=== PATIENT | male | born 1945 | race Caucasian/White ===

== ENCOUNTER → 2016-05-04 | Outpatient (CLI) | payer OTHER ==
[~2016-05-04] MED LIST: LIDOCAINE 1% MDV 20ML VIAL As Ordered ONE; LIDOCAINE 2% MDV 20 ML VIAL As Ordered ONE; LIDOCAINE 4% CREAM 5GM (LMX4) As Ordered ONE; SODIUM TETRADECYL SULFATE(3%)30MG/ML 2ML VIAL (SOTRADECOL) As Ordered ONE
--- NOTE | 2016-05-04 18:54 | REPKIM ---
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 Patient has failed conservative treatment; c /o persistent symptoms that are refractory more than a 3 month course of conservative therapy; utilization of compressive stockings and leg elevation. Duplex US reflux evaluation of the left leg showed significant reflux involving the greater saphenous vein for a duration of 4.7 seconds, AP dimension of that vessel is 7.7 mm. this also showed significant collateral varicosities also seen in the mid calf level. PROCEDURE: 1. Endovenous laser ablation therapy of the incompetent GSV on the left 2. Sclerotherapy of the incompetent significant calf varicosities on the left INTERVENTIONALIST: Wisam Sotomayor MD EBL: 5 mL MEDICATIONS: Local Lidocaine and Sodium Tetradecyl Sulfate 3% diluted to 1.5% DEVICE USED: 45-CM [id number] TECHNIQUE AND FINDINGS: Informed consent was obtained prior to the procedure. The patient was placed supine on the table. A time out was performed that verified correct procedure, site, side and materials available. Ultrasound examination was performed and focused on the saphenofemoral junction of the left leg. This showed significant reflux involving the greater saphenous vein as previously described. This also showed significant calf varicosities. The left lower extremity was prepped and draped in the usual sterile fashion. After local anesthesia with 1mL of lidocaine 1% at the skin, the incompetent greater saphenous vein just above the knee level was accessed with a 21 gauge needle and a 0.018" wire followed by a 4 [place] sheath of the EVLT kit. The sheath was advanced over the wire to the saphenofemoral junction level and the laser fiber was advanced coaxially and its tip was positioned approximately 4-5 cm distal from the saphenofemoral junction. Tumescent anesthesia was given along this vein by using real-time ultrasonographic guidance and a 22 gauge spinal needle and a mixture of diluted lidocaine (12.5mL @ 2% in 237.5mL of normal saline). Endovenous laser ablation was applied along the greater saphenous vein using 6 Buck[place] in continuous mode for a total duration of 229 seconds. A total of 1373 Joules was delivered. Significant varicosities in the calf region was then accessed with a butterfly needle. Approximately 2 mL of sclerotherapy foam (1mL sodium tetradecyl sulfate diluted at 1.5 %) mixed with air at a ratio of 1:4 injected. Compression was maintained. SteriStrips was applied on the skin, followed by 20-30 mm Hg compression stockings. The patient was then allowed to stand and instructed to walk for 15 minutes. He was then discharged back home in good and stable condition with no immediate complication. This procedure was performed with ultrasound guidance. Dr. Sotomayor was present. IMPRESSION: Successful treatment of symptomatic incompetent GSV in the left lower extremity by endovenous laser ablation. 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 PLAN: Pt was given post-procedure instructions, including contact information for a follow-up duplex ultrasound of the left lower extremity to rule out DVT and post EVLT/sclerotherapy evaluation in next several days. cc: ROSE Rudd
== END | disposition home or self-care (01) ==
LOC: M IRPRO 08:08
DX: I83.812 Varicose veins of left lower extremity with pain (principal); I83.892 Varicose veins of left lower extremity with other complications

== ENCOUNTER → 2016-05-06 | Outpatient (CLI) | payer OTHER ==
--- NOTE | 2016-05-06 11:45 | REP ---
Left lower extremity Duplex Doppler venous ultrasound: Real time compression and duplex Doppler interrogation of the left lower extremity deep venous system is performed. The left common femoral, superficial femoral and popliteal veins are fully compressible with transducer pressure and demonstrate normal spontaneous and phasic flow, without evidence of deep venous thrombosis. Impression: No evidence of deep venous thrombosis of the left lower extremity femoral popliteal venous system. The greater saphenous vein demonstrates thrombosis up to the saphenofemoral junction, as expected. Signed by Robin Goldman MD 05/06/2016 11:38 A
== END ==
LOC: M RAD 10:10
DX: I83.812 Varicose veins of left lower extremity with pain (principal)

== ENCOUNTER → 2017-08-03 | Outpatient (CLI) | payer OTHER ==
[2017-08-03 11:44] LABS: BASO # 0.1 10^3/uL (0.0-0.2); BASO % 0.8 % (0.0-1.0); EOS # 0.3 10^3/uL (0.0-0.50); EOS % 3.8 % (0.0-3.0); HEMATOCRIT 42.9 % (42.0-52.0); HEMOGLOBIN 13.9 g/dl (13.5-17.5); IMMATURE GRANULOCYTE # 0.2 10^3/uL (0-0); IMMATURE GRANULOCYTE % 2.1 % (0-3.0); LYMPH # 2.5 10^3/uL (1.5-4.5); MEAN CORPUSCULAR HEMOGLOBIN 28.7 pg (27.0-33.0); MEAN CORPUSCULAR HGB CONC 32.4 g/dl (32.0-36.5); MEAN CORPUSCULAR VOLUME 88.6 fl (80.0-96.0); MONO # 0.7 10^3/uL (0.0-0.8); MONO % 8.2 % (0.0-5.0); NEUTROPHILS # 4.9 10^3/uL (1.8-7.7); NEUTROPHILS % 56.1 % (36.0-66.0); PLATELET COUNT, AUTOMATED 241 10^3/uL (150-450); RED BLOOD COUNT 4.84 10^6/uL (4.30-6.10); RED CELL DISTRIBUTION WIDTH 13.3 % (11.5-14.5); WHITE BLOOD COUNT 8.7 10^3/uL (4.0-10.0)
[2017-08-03 12:01] LABS: TOTAL 25(OH) VITAMIN D 45.1 NG/ML (30.0-100.0)
[2017-08-03 12:13] LABS: ALBUMIN 3.4 GM/DL (3.2-5.2); ALBUMIN/GLOBULIN RATIO 0.97 (1.00-1.93); ALKALINE PHOSPHATASE 92 U/L (45-117); ALT/SGPT 28 U/L (12-78); ANION GAP 5 MEQ/L (8-16); AST/SGOT 17 U/L (7-37); BILIRUBIN,TOTAL 0.5 MG/DL (0.2-1.0); BLOOD UREA NITROGEN 27 MG/DL (7-18); CALCIUM LEVEL 8.9 MG/DL (8.8-10.2); CARBON DIOXIDE LEVEL 29 MEQ/L (21-32); CHLORIDE LEVEL 107 MEQ/L (98-107); CHOLESTEROL LEVEL 174 MG/DL (<200); CHOLESTEROL RISK RATIO 3.346 (<5); CREATININE FOR GFR 1.32 MG/DL (0.70-1.30); FREE T4 1.14 NG/DL (0.76-1.46); GLOMERULAR FILTRATION RATE 56.9 (>42); GLUCOSE, FASTING 85 MG/DL (70-100); HDL CHOLESTEROL 52 MG/DL (>40); LDL CHOLESTEROL 97.8 MG/DL (<100); NON-HDL-C 122 MG/DL; POTASSIUM SERUM 5.1 MEQ/L (3.5-5.1); SODIUM LEVEL 141 MEQ/L (136-145); TOTAL PROTEIN 6.9 GM/DL (6.4-8.2); TRIGLYCERIDES LEVEL 121 MG/DL (<150)
[2017-08-03 13:11] LABS: ESTIMATED AVERAGE GLUCOSE 120 MG/DL (60-110); HEMOGLOBIN A1c 5.8 %
== END ==
LOC: M LRY 07:49
DX: R73.9 Hyperglycemia, unspecified (principal); Z79.899 Other long term (current) drug therapy; E78.00 Pure hypercholesterolemia, unspecified; E55.9 Vitamin D deficiency, unspecified
CPT/HCPCS: 84443

== ENCOUNTER → 2017-09-20 | Outpatient (CLI) | payer OTHER | LOC: M RAD 09:22 | DX: J32.4 Chronic pansinusitis (principal); J34.2 Deviated nasal septum | CPT/HCPCS: 70486 ==

== ENCOUNTER → 2018-02-27 | Outpatient (CLI) | payer OTHER | LOC: M EKG 10:31 | DX: Z01.818 Encounter for other preprocedural examination (principal) | CPT/HCPCS: 93005 ==

== ENCOUNTER 2018-03-06 10:38 | Day surgery (SDC) | payer OTHER ==
[2018-03-06] MEDS ORDERED: LR 1,000 ML IV ×3 (12:00→15:00)
[2018-03-06] MEDS ORDERED: LIDOCAINE 2% INJ 100 MG/5 ML SDV (FOR ANES.) As Ordered (12:22)
[2018-03-06] MEDS ORDERED: PROPOFOL 200 MG/20 ML VIAL As Ordered ×2 (12:22→12:41)
[2018-03-06] MEDS ORDERED: fentaNYL 100 MCG/2 ML INJECTION (J3010) As Ordered ×4 (12:22→13:50)
[2018-03-06] MEDS ORDERED: ROCURONIUM BROMIDE 50 MG/5 ML VIAL As Ordered (12:22)
[2018-03-06] MEDS ORDERED: dexameTHASONE 4 MG/ML 1ML VIAL (J1100) As Ordered (12:22)
[2018-03-06] MEDS ORDERED: ESMOLOL INJ 100MG/10ML VIAL As Ordered (12:46)
[2018-03-06] MEDS ORDERED: ONDANSETRON 4MG/2ML VIAL (J2405) As Ordered ×2 (12:47→14:41)
[2018-03-06] MEDS ORDERED: SUGAMMADEX SODIUM 500 MG/5 ML VIAL (BRIDION) As Ordered ×2 (12:49→14:42)
[2018-03-06] MEDS ORDERED: PHENYLephrine HCL 500 MCG/5 ML (100MCG/ML) SYRINGE (J2370) As Ordered ×2 (13:48→14:06)
[2018-03-06] MEDS: METHYLENE BLUE 0.5% (5MG/ML) 10 ML AMP (PROVAYBLUE)(Q9968 PER 1MG) As Ordered (13:54)
[2018-03-06] MEDS: LIDOCAINE W/EPINEPHRINE 1% 20ML VIAL As Ordered (13:54)
[2018-03-06] MEDS: EPINEPHrine 1MG/ML INJ 30ML MD-VIAL As Ordered (13:54)
[2018-03-06] MEDS ORDERED: MEPERIDINE INJ 25 MG/ML VIAL (J2175) IV (15:00)
[2018-03-06] MEDS ORDERED: PERCOCET 5MG/325MG TAB PO (15:00)
[2018-03-06] MEDS ORDERED: fentaNYL 100 MCG/2 ML INJECTION (J3010) IV (15:00)
[2018-03-06] MEDS ORDERED: METOCLOPRAMIDE INJ 10MG/2ML VIAL (J2765) IV (15:00)
[2018-03-06] MEDS ORDERED: ACETAMINOPH W/CODEINE #3 TAB UD PO (15:00)
[2018-03-06] MEDS ORDERED: ONDANSETRON 4MG/2ML VIAL (J2405) IV (15:00)
== END 2018-03-06 17:20 | disposition home or self-care (01) ==
LOC: M SDC 17:20
DX: J34.2 Deviated nasal septum (principal); J32.9 Chronic sinusitis, unspecified; I10 Essential (primary) hypertension; E78.00 Pure hypercholesterolemia, unspecified; K21.9 Gastro-esophageal reflux disease without esophagitis; M12.9 Arthropathy, unspecified; M54.2 Cervicalgia; R51 Headache; R04.0 Epistaxis; R06.83 Snoring; Z79.899 Other long term (current) drug therapy; Z79.82 Long term (current) use of aspirin
CPT/HCPCS: 30130

== ENCOUNTER 2018-06-02 20:03 | Emergency (ER) | payer MEDICARE, OTHER ==
[~2018-06-02] VITALS: Ht 170.2 cm; Wt 81.2 kg
[~2018-06-02 20:03] MED LIST changes: +ASPI1TAB PO; +CALC1TAB40 PO; +COQ-100C2 PO; +FISH7.5C PO; +GARL500T PO; -LIDOCAINE 1% MDV 20ML VIAL As Ordered ONE; -LIDOCAINE 2% MDV 20 ML VIAL As Ordered ONE; -LIDOCAINE 4% CREAM 5GM (LMX4) As Ordered ONE; +LISI-538 PO; +SIMV20TA2 PO; -SODIUM TETRADECYL SULFATE(3%)30MG/ML 2ML VIAL (SOTRADECOL) As Ordered ONE; +TURM450C PO; +VITA100067 PO; +VITA400C7 PO; +VITA500T PO; +VITA500T3 PO
[2018-06-02] MEDS ORDERED: ACETAMINOPH W/CODEINE #3 TAB UD PO ONE (21:00)
[2018-06-02] MEDS ORDERED: CODE30TA3 PO (21:28)
[2018-06-02 21:38] VITALS: BP 134/63
--- NOTE | 2018-06-03 10:31 | REP ---
Left ribs for views: There is no rib fracture or other rib abnormality. PA chest: Comparison is 2001. There is no pneumothorax, hemothorax or pulmonary contusion. Lung partida are clear. Cardiac size is normal. The ed, mediastinum, skeletal structures are unremarkable. Impression: Negative PA chest. Electronically Signed by Robin Gipson MD 06/03/2018 08:39 A
--- NOTE | 2018-06-03 17:49 | ECGEPIP ---
Stationary ECG Study [facility] - ED Test Date: 2018-06-02 Pat Name: ADILSON COPE Department: Room: - Gender: M Data Entry Machine Operator: : [id number] Requested By: LUCIE RANGEL Order Number: [id number] Reading MD: Rosalie Dominique Measurements Intervals [place] Rate: 68 P: 14 MT: 143 QRS: 43 QRSD: 89 T: 59 QT: 387 QTc: 414 Interpretive Statements SINUS RHYTHM PROMINENT R WAVES V1-V4 INCREASED RATE 02/27/18 Electronically Signed On 06-03-2018 17:48:58 EST by Rosalie Dominique
== END 2018-06-02 21:59 | disposition home or self-care (01) ==
LOC: M ED 20:03
DX: S20.212A Contusion of left front wall of thorax, initial encounter (principal); W01.10XA Fall on same level from slipping, tripping and stumbling with subsequent striking against unspecified object, initial encounter; Y92.9 Unspecified place or not applicable; Y93.9 Activity, unspecified; Y99.9 Unspecified external cause status; I10 Essential (primary) hypertension; Z79.82 Long term (current) use of aspirin; Z79.899 Other long term (current) drug therapy

== ENCOUNTER → 2019-09-30 | Outpatient (CLI) | payer MEDICARE ==
[~2019-09-30] MED LIST changes: +ACET300T47 PO; -ASPI1TAB PO; +ASPI81TA26 PO; +CONRAY-43 43% 50ML VIAL (Q9960) As Ordered ONE; +CYAN500T8 PO; +PROHANCE 279.3MG/ML 5ML VIAL As Ordered ONE; -SIMV20TA2 PO; +SIMV20TA22 PO; +VITA-243 PO; -VITA500T PO; -VITA500T3 PO
--- NOTE | 2019-09-30 11:27 | REP ---
Reason For Exam/Comment: Pain in right shoulder, rule out labral tear Procedure: Right shoulder MRI arthrogram The procedure was performed by HERACLIO Iverson, under the direct supervision of Dr. Goldman. The benefits and risks including but not limited to pain, infection, bleeding and anaphylaxis were explained to the patient and informed consent was obtained both verbally and written. Directly prior to the start of the procedure, a formal timeout was completed in the procedure room. Technique: The right glenohumeral joint space was localized using fluoroscopic guidance. The skin was prepped and draped in the usual sterile fashion. 5 mL of 1% lidocaine 10 mg/ml was used as a local anesthetic. Using fluoroscopic guidance a 22-gauge spinal needle was inserted and advanced to the right glenohumeral joint space . 1 mL of Conray 43 was injected to verify needle placement. 12 mL of a solution containing 20 ml of sterile saline and a 0.15 ml of ProHance was injected into the joint. The needle was removed and the patient was taken MRI for post procedural imaging. The patient tolerated the procedure well and there were no immediate complications. 0.1 minutes of fluoroscopy time was utilized for this procedure. Some fluoroscopic images are performed with last image hold technology. These images require no additional radiation. Reviewed by HERACLIO Grey 09/30/2019 09:43 A Electronically Signed by Robin Goldman MD 09/30/2019 10:27 A
--- NOTE | 2019-09-30 12:46 | REP ---
MR ARTHROGRAM RIGHT SHOULDER: TECHNIQUE: Axial T2 fat sat, coronal oblique T1, T2 fat sat, post arthrogram axial T1 fat sat, proton density, coronal oblique T1 fat sat, T2 sat, sagittal oblique T2 fat sat, ABER T1 fat sat. There is a complete full-thickness tear of the supraspinatus tendon with traction of the musculotendinous junction approximately 3-4 cm. There is tendinopathy of the subscapularis tendon with a possible partial tear. There are mild to moderate hypertrophic degenerative changes at the acromioclavicular joint. There is a type 1 acromion. Biceps tendon is within the bicipital groove with no tenosynovitis. There is no [place]-Sachs deformity. The deltoid muscle demonstrates no abnormal signal. There is mild fraying of the biceps labral complex and superior labrum with no discrete labral tear. There is no bone marrow edema or occult fracture. Small amount of joint fluid extends into the subacromial subdeltoid bursae. IMPRESSION: Complete full thickness tear supraspinatus tendon with approximately 3-4 cm of retraction of the musculotendinous junction. There is tendinosis and possibly a partial tear of the subscapularis tendon. There are mild to moderate hypertrophic changes of the acromioclavicular joint. Mild fraying of the biceps labral complex and superior labrum without a discrete labral tear. Electronically Signed by Robin Goldman MD 09/30/2019 07:30 P
== END ==
LOC: M RADPRO 06:33
PROVIDERS: ATTEND Physician Assistant Medical
DX: M75.120 Complete rotator cuff tear or rupture of unspecified shoulder, not specified as traumatic (principal)
CPT/HCPCS: 23350; 73223; 77002; A9576; Q9960

== ENCOUNTER → 2021-10-14 | Outpatient (REF) | payer MEDICARE ==
[~2021-10-14] MED LIST changes: -CONRAY-43 43% 50ML VIAL (Q9960) As Ordered ONE; +CYAN500T14 PO; -CYAN500T8 PO; -LISI-538 PO; +LISI20TA33 PO; -PROHANCE 279.3MG/ML 5ML VIAL As Ordered ONE
== END ==
LOC: M SFHCDERM 16:09
PROVIDERS: ATTEND Dermatology
DX: D23.4 Other benign neoplasm of skin of scalp and neck (principal)

== ENCOUNTER → 2022-01-19 | Outpatient (CLI) | payer MEDICARE ==
[~2022-01-19] MED LIST changes: +FISH10005 PO; -FISH7.5C PO
== END ==
LOC: M LAB 13:46
PROVIDERS: ATTEND Physician Assistant
DX: M25.551 Pain in right hip (principal)

== ENCOUNTER → 2022-01-21 | Outpatient (CLI) | payer MEDICARE | LOC: M WHC 07:34 | PROVIDERS: ATTEND Physician Assistant | DX: M25.551 Pain in right hip (principal); R10.9 Unspecified abdominal pain ==

== ENCOUNTER 2022-07-23 09:53 | Emergency (ER) | payer MEDICARE ==
[~2022-07-23] VITALS: Ht 170.2 cm; Wt 77.9 kg
[2022-07-23 09:54] VITALS: BP 158/71
[2022-07-23] MEDS ORDERED: SIMV40TA20 (10:13)
== END 2022-07-23 11:20 | disposition left against medical advice (07) ==
LOC: M ED 09:53
DX: Z53.21 Procedure and treatment not carried out due to patient leaving prior to being seen by health care provider (principal)

== ENCOUNTER 2023-05-30 17:58 | Emergency (ER) | payer MEDICARE ==
[~2023-05-30] VITALS: Ht 170.2 cm; Wt 75.5 kg
[~2023-05-30 17:58] MED LIST changes: +SIMV40TA20
[2023-05-30] MEDS: ACETAMINOPHEN TAB 650MG DOSE (2X325MG) PO ONE (19:28)
[2023-05-30 20:30] LABS: BASO % 0.3 % (0.0-1.0); EOS # 0.1 10^3/uL (0.0-0.5); EOS % 0.8 % (0.0-3.0); HEMATOCRIT 37.2 % (42.0-52.0); HEMOGLOBIN 11.9 g/dl (13.5-17.5); LYMPH # 1.1 10^3/uL (1.5-5.0); LYMPH % 9.5 % (24.0-44.0); MEAN CORPUSCULAR HEMOGLOBIN 28.3 pg (27.0-33.0); MEAN CORPUSCULAR VOLUME 88.6 fl (80.0-96.0); MONO # 1.3 10^3/uL (0.0-0.8); MONO % 11.7 % (2.0-8.0); NEUTROPHILS # 8.5 10^3/uL (1.5-8.5); NEUTROPHILS % 77.2 % (36.0-66.0); PLATELET COUNT, AUTOMATED 194 10^3/uL (150-450)
[2023-05-30 20:41] LABS: INR 1.11
[2023-05-30 20:42] LABS: PARTIAL THROMBOPLASTIN TIME 26.1 SECONDS (24.8-34.2)
[2023-05-30 20:58] LABS: ALBUMIN 2.5 G/DL (3.2-5.2); ALKALINE PHOSPHATASE 90 U/L (46-116); ALT/SGPT 26 U/L (7.0-40); AST/SGOT 30 U/L (<34); BILIRUBIN,DIRECT 0.2 MG/DL (<0.4); BILIRUBIN,TOTAL 0.4 MG/DL (0.3-1.2); BLOOD UREA NITROGEN 31 MG/DL (9-23); CALCIUM LEVEL 8.1 MG/DL (8.3-10.6); CARBON DIOXIDE LEVEL 26 MMOL/L (20-31); CHLORIDE LEVEL 108 MMOL/L (98-107); CK-MB VALUE MASS < 1.0 NG/ML (<3.6); CPK CREATINE PHOSPHOKINASE 23 U/L (46-171); CREATININE FOR GFR 1.43 MG/DL (0.70-1.30); GLUCOSE, FASTING 122 MG/DL (74-106); MB/CK RELATIVE INDEX 4.34 (< OR =4); POTASSIUM SERUM 4.2 MMOL/L (3.5-5.1); SODIUM LEVEL 139 MMOL/L (136-145); TOTAL PROTEIN 5.8 G/DL (5.7-8.2)
[2023-05-30 21:02] LABS: FREE T4 1.06 NG/DL (0.89-1.76); THYROID STIMULATING HORMONE 0.474 uIU/ML (0.55-4.78)
[2023-05-30 22:47] VITALS: BP 148/74; TEMP 98.6; O2SAT 96
== END 2023-05-30 23:10 | disposition home or self-care (01) ==
LOC: EDBD 17:58 → M ED 17:58
DX: S92.351A Displaced fracture of fifth metatarsal bone, right foot, initial encounter for closed fracture (principal); S92.341A Displaced fracture of fourth metatarsal bone, right foot, initial encounter for closed fracture; M71.21 Synovial cyst of popliteal space [Baker], right knee; M71.22 Synovial cyst of popliteal space [Baker], left knee; B34.8 Other viral infections of unspecified site; M19.071 Primary osteoarthritis, right ankle and foot; M19.072 Primary osteoarthritis, left ankle and foot; R60.9 Edema, unspecified; I10 Essential (primary) hypertension; E78.5 Hyperlipidemia, unspecified; Z87.891 Personal history of nicotine dependence; Z79.82 Long term (current) use of aspirin; Z79.811 Long term (current) use of aromatase inhibitors; Z79.899 Other long term (current) drug therapy

== ENCOUNTER → 2023-06-08 | Outpatient (CLI) | payer MEDICARE ==
[2023-06-08 17:07] LABS: APPEARANCE, URINE CLEAR (CLEAR); BACTERIA, URINE AUTO NEGATIVE (NEGATIVE); BILIRUBIN, URINE AUTO NEGATIVE (NEGATIVE); BLOOD, URINE BLOOD 1+ (NEGATIVE); COLOR, URINE YELLOW (YELLOW); GLUCOSE, URINE (UA) AUTO NEGATIVE (NEGATIVE); KETONE, URINE AUTO NEGATIVE (NEGATIVE); LEUKOCYTE ESTERASE, URINE AUTO NEGATIVE (NEGATIVE); MUCUS, URINE SMALL (NEGATIVE); NITRITE, URINE AUTO NEGATIVE (NEGATIVE); PROTEIN, URINE AUTO NEGATIVE (NEGATIVE); RBC, URINE AUTO 2 /HPF (0-3); SPECIFIC GRAVITY URINE AUTO 1.016 (1.002-1.035); SQUAMOUS EPITHELIAL CELL UR AU 0 /HPF (0-6); UROBILINOGEN, URINE AUTO 0.2 mg/dL (0.0-2.0); WBC, URINE AUTO 0 /HPF (0-3)
[2023-06-08 17:23] LABS: BASO % 0.4 % (0.0-1.0); EOS # 0.1 10^3/uL (0.0-0.5); EOS % 0.5 % (0.0-3.0); HEMATOCRIT 40.2 % (42.0-52.0); HEMOGLOBIN 12.3 g/dl (13.5-17.5); LYMPH # 2.3 10^3/uL (1.5-5.0); LYMPH % 24.4 % (24.0-44.0); MEAN CORPUSCULAR HEMOGLOBIN 27.9 pg (27.0-33.0); MEAN CORPUSCULAR HGB CONC 30.6 g/dl (32.0-36.5); MEAN CORPUSCULAR VOLUME 91.2 fl (80.0-96.0); MONO # 0.6 10^3/uL (0.0-0.8); MONO % 6.9 % (2.0-8.0); NEUTROPHILS # 6.2 10^3/uL (1.5-8.5); NEUTROPHILS % 66.5 % (36.0-66.0); PLATELET COUNT, AUTOMATED 376 10^3/uL (150-450); RED BLOOD COUNT 4.41 10^6/uL (4.30-6.10); WHITE BLOOD COUNT 9.3 10^3/uL (4.0-10.0)
[2023-06-08 17:49] LABS: ALBUMIN 3.4 G/DL (3.2-5.2); BILIRUBIN,TOTAL 0.3 MG/DL (0.3-1.2); CALCIUM LEVEL 9.4 MG/DL (8.3-10.6); CHOLESTEROL RISK RATIO 4.51 (<5); CREATININE FOR GFR 1.39 MG/DL (0.70-1.30); GLOMERULAR FILTRATION RATE 52.7 (>42); HDL CHOLESTEROL 48.1 MG/DL (>40); LDL CHOLESTEROL 149.7 MG/DL (<100); MAGNESIUM LEVEL 1.9 MG/DL (1.8-2.4); NON-HDL-C 168.9 MG/DL; PERCENT SATURATION 25.3 % (19.7-50.0); POTASSIUM SERUM 4.6 MMOL/L (3.5-5.1); TOTAL PROTEIN 7.1 G/DL (5.7-8.2)
[2023-06-08 17:50] LABS: FREE T4 1.26 NG/DL (0.89-1.76)
[2023-06-08 17:51] LABS: FERRITIN 203.4 NG/ML (10.5-307.3); THYROID STIMULATING HORMONE 0.511 uIU/ML (0.55-4.78)
== END ==
LOC: M WUC 12:56
PROVIDERS: ATTEND Physician Assistant
DX: M85.88 Other specified disorders of bone density and structure, other site (principal); M51.36 Other intervertebral disc degeneration, lumbar region; I10 Essential (primary) hypertension; R53.1 Weakness; G89.29 Other chronic pain; Z86.39 Personal history of other endocrine, nutritional and metabolic disease

== ENCOUNTER → 2023-07-06 | Outpatient (CLI) | payer MEDICARE ==
[2023-07-06 13:39] LABS: APPEARANCE, URINE CLEAR (CLEAR); BACTERIA, URINE AUTO NEGATIVE (NEGATIVE); BILIRUBIN, URINE AUTO NEGATIVE (NEGATIVE); BLOOD, URINE BLOOD NEGATIVE (NEGATIVE); COLOR, URINE YELLOW (YELLOW); GLUCOSE, URINE (UA) AUTO NEGATIVE (NEGATIVE); KETONE, URINE AUTO NEGATIVE (NEGATIVE); LEUKOCYTE ESTERASE, URINE AUTO NEGATIVE (NEGATIVE); NITRITE, URINE AUTO NEGATIVE (NEGATIVE); PROTEIN, URINE AUTO NEGATIVE (NEGATIVE); RBC, URINE AUTO 0 /HPF (0-3); SPECIFIC GRAVITY URINE AUTO 1.014 (1.002-1.035); SQUAMOUS EPITHELIAL CELL UR AU 0 /HPF (0-6); UROBILINOGEN, URINE AUTO 0.2 mg/dL (0.0-2.0); WBC, URINE AUTO 0 /HPF (0-3)
[2023-07-06 14:16] LABS: TOTAL 25(OH) VITAMIN D 45.2 NG/ML (20.0-100.0)
[2023-07-06 14:18] LABS: FREE T4 1.13 NG/DL (0.89-1.76)
[2023-07-06 14:24] LABS: ALBUMIN 3.6 G/DL (3.2-5.2); BILIRUBIN,TOTAL 0.4 MG/DL (0.3-1.2); CALCIUM LEVEL 9.6 MG/DL (8.3-10.6); CREATININE FOR GFR 1.7 MG/DL (0.70-1.30); GLOMERULAR FILTRATION RATE 41.8 (>42); POTASSIUM SERUM 5.7 MMOL/L (3.5-5.1); TOTAL PROTEIN 6.7 G/DL (5.7-8.2)
[2023-07-06 14:44] LABS: FREE T3 2.8 PG/ML (2.3-4.2); TOTAL T3 95.7 NG/DL (60.0-181.0)
== END ==
LOC: M RAD 12:43
PROVIDERS: ATTEND Physician Assistant
DX: R79.89 Other specified abnormal findings of blood chemistry (principal); M85.80 Other specified disorders of bone density and structure, unspecified site; R31.9 Hematuria, unspecified; R94.6 Abnormal results of thyroid function studies

== ENCOUNTER 2023-07-12 14:25 | Emergency (ER) | payer MEDICARE ==
[~2023-07-12] VITALS: Ht 170.2 cm; Wt 72.3 kg
[2023-07-12 18:38] LABS: BASO % 0.4 % (0.0-1.0); EOS # 0.1 10^3/uL (0.0-0.5); EOS % 1.6 % (0.0-3.0); HEMATOCRIT 46.3 % (42.0-52.0); HEMOGLOBIN 14.7 g/dl (13.5-17.5); LYMPH # 2.1 10^3/uL (1.5-5.0); LYMPH % 30.4 % (24.0-44.0); MEAN CORPUSCULAR HEMOGLOBIN 28.7 pg (27.0-33.0); MEAN CORPUSCULAR HGB CONC 31.7 g/dl (32.0-36.5); MEAN CORPUSCULAR VOLUME 90.3 fl (80.0-96.0); MONO # 0.5 10^3/uL (0.0-0.8); MONO % 7.5 % (2.0-8.0); NEUTROPHILS # 4.1 10^3/uL (1.5-8.5); NEUTROPHILS % 59.5 % (36.0-66.0); PLATELET COUNT, AUTOMATED 282 10^3/uL (150-450); RED BLOOD COUNT 5.13 10^6/uL (4.30-6.10); WHITE BLOOD COUNT 6.9 10^3/uL (4.0-10.0)
[2023-07-12 19:08] LABS: CALCIUM LEVEL 10.1 MG/DL (8.3-10.6); CREATININE FOR GFR 1.63 MG/DL (0.70-1.30); GLOMERULAR FILTRATION RATE 43.9 (>42); MAGNESIUM LEVEL 2.1 MG/DL (1.8-2.4); POTASSIUM SERUM 4.5 MMOL/L (3.5-5.1)
[2023-07-12 19:11] LABS: THYROID STIMULATING HORMONE 0.156 uIU/ML (0.55-4.78)
[2023-07-12] MEDS ORDERED: ONDA4TAB6 PO (22:53)
[2023-07-12 23:00] VITALS: BP 127/74; TEMP 98; O2SAT 99
[2023-07-12] MEDS: ONDANSETRON 4MG ORAL DISINTEGRATING TAB PO ONE (23:09)
== END 2023-07-12 23:26 | disposition home or self-care (01) ==
LOC: M ED 14:25
DX: R42 Dizziness and giddiness (principal); F07.81 Postconcussional syndrome; M51.37 Other intervertebral disc degeneration, lumbosacral region; M85.88 Other specified disorders of bone density and structure, other site; M47.9 Spondylosis, unspecified; I49.3 Ventricular premature depolarization; I10 Essential (primary) hypertension; G40.909 Epilepsy, unspecified, not intractable, without status epilepticus; Z79.811 Long term (current) use of aromatase inhibitors; Z79.83 Long term (current) use of bisphosphonates; Z79.82 Long term (current) use of aspirin; Z79.899 Other long term (current) drug therapy; Z79.02 Long term (current) use of antithrombotics/antiplatelets

== ENCOUNTER → 2023-08-22 | Outpatient (CLI) | payer MEDICARE ==
[~2023-08-22] MED LIST changes: +ONDA4TAB6 PO
[2023-08-22 11:51] LABS: APPEARANCE, URINE CLEAR (CLEAR); BACTERIA, URINE AUTO NEGATIVE (NEGATIVE); BILIRUBIN, URINE AUTO NEGATIVE (NEGATIVE); BLOOD, URINE BLOOD NEGATIVE (NEGATIVE); COLOR, URINE YELLOW (YELLOW); GLUCOSE, URINE (UA) AUTO NEGATIVE (NEGATIVE); KETONE, URINE AUTO NEGATIVE (NEGATIVE); LEUKOCYTE ESTERASE, URINE AUTO NEGATIVE (NEGATIVE); NITRITE, URINE AUTO NEGATIVE (NEGATIVE); PROTEIN, URINE AUTO NEGATIVE (NEGATIVE); RBC, URINE AUTO 0 /HPF (0-3); SPECIFIC GRAVITY URINE AUTO 1.012 (1.002-1.035); SQUAMOUS EPITHELIAL CELL UR AU 0 /HPF (0-6); UROBILINOGEN, URINE AUTO 0.2 mg/dL (0.0-2.0); WBC, URINE AUTO 0 /HPF (0-3)
[2023-08-22 12:39] LABS: CREATININE, URINE 83.6 MG/DL; MAU/CREAT RATIO 8.3 MCG/MG (0.0-30.0)
[2023-08-22 12:43] LABS: ALBUMIN 3.6 G/DL (3.2-5.2); ALKALINE PHOSPHATASE 100 U/L (46-116); ALT/SGPT 18 U/L (7.0-40); AST/SGOT 21 U/L (<34); BILIRUBIN,TOTAL 0.6 MG/DL (0.3-1.2); BLOOD UREA NITROGEN 23 MG/DL (9-23); CALCIUM LEVEL 9.2 MG/DL (8.3-10.6); CARBON DIOXIDE LEVEL 30 MMOL/L (20-31); CHLORIDE LEVEL 103 MMOL/L (98-107); CREATININE FOR GFR 1.52 MG/DL (0.70-1.30); GLOMERULAR FILTRATION RATE 47.6 (>42); GLUCOSE, FASTING 98 MG/DL (74-106); POTASSIUM SERUM 4.5 MMOL/L (3.5-5.1); SODIUM LEVEL 138 MMOL/L (136-145); TOTAL PROTEIN 6.5 G/DL (5.7-8.2)
[2023-08-22 12:44] LABS: FREE T4 1.18 NG/DL (0.89-1.76); THYROGLOBULIN ANTIBODY < 15.0 U/ML (<60.0); THYROID STIMULATING HORMONE 0.417 uIU/ML (0.55-4.78)
[2023-08-22 12:45] LABS: FREE T3 3.1 PG/ML (2.3-4.2)
== END ==
LOC: M WUC 09:37
PROVIDERS: ATTEND Family Medicine
DX: E78.5 Hyperlipidemia, unspecified (principal); N18.30 Chronic kidney disease, stage 3 unspecified; R79.89 Other specified abnormal findings of blood chemistry

== ENCOUNTER 2023-09-22 13:44 | Inpatient (IN) | payer MEDICARE ==
[~2023-09-22] VITALS: Ht 170.2 cm; Wt 78.0 kg
[~2023-09-22 13:44] MED LIST changes: +ONDA-282 PO; -ONDA4TAB6 PO
[2023-09-22] MEDS ORDERED: ROSU5TAB40 PO (14:09)
[2023-09-22] MEDS ORDERED: LISI10TA22 PO (14:09)
[2023-09-22] MEDS ORDERED: CYCL5TAB PO (14:09)
[2023-09-22] MEDS ORDERED: IBUP80TA PO (14:09)
[2023-09-22] MEDS ORDERED: MECL-86 PO (14:09)
[2023-09-22] MEDS: NS 1,000 ML IV ONE ×2 (15:20→22:02)
[2023-09-22 16:10] LABS: BASO % 0.3 % (0.0-1.0); EOS # 0.1 10^3/uL (0.0-0.5); EOS % 0.8 % (0.0-3.0); HEMATOCRIT 35.4 % (42.0-52.0); HEMOGLOBIN 11.5 g/dl (13.5-17.5); LYMPH # 2.2 10^3/uL (1.5-5.0); LYMPH % 18.7 % (24.0-44.0); MEAN CORPUSCULAR HEMOGLOBIN 28.7 pg (27.0-33.0); MEAN CORPUSCULAR HGB CONC 32.5 g/dl (32.0-36.5); MEAN CORPUSCULAR VOLUME 88.3 fl (80.0-96.0); MONO # 0.9 10^3/uL (0.0-0.8); MONO % 7.2 % (2.0-8.0); NEUTROPHILS # 8.6 10^3/uL (1.5-8.5); NEUTROPHILS % 72.2 % (36.0-66.0); PLATELET COUNT, AUTOMATED 247 10^3/uL (150-450); RED BLOOD COUNT 4.01 10^6/uL (4.30-6.10); WHITE BLOOD COUNT 11.9 10^3/uL (4.0-10.0)
[2023-09-22 16:17] LABS: INR 1.04; PARTIAL THROMBOPLASTIN TIME 26.8 SECONDS (24.8-34.2); PROTHROMBIN TIME 13.2 SECONDS (12.5-14.5)
[2023-09-22 16:24] LABS: LIPASE 32 U/L (12-53)
[2023-09-22 16:26] LABS: ETHYL ALCOHOL (ETHANOL) < 0.003 % (0.000-0.010)
[2023-09-22 16:27] LABS: ALBUMIN 3.7 G/DL (3.2-5.2); ALKALINE PHOSPHATASE 87 U/L (46-116); ALT/SGPT 25 U/L (7.0-40); AMYLASE 79 U/L (30-118); AST/SGOT 29 U/L (<34); BILIRUBIN,DIRECT 0.2 MG/DL (<0.4); BILIRUBIN,TOTAL 0.6 MG/DL (0.3-1.2); BLOOD UREA NITROGEN 27 MG/DL (9-23); CALCIUM LEVEL 9.1 MG/DL (8.3-10.6); CARBON DIOXIDE LEVEL 25 MMOL/L (20-31); CHLORIDE LEVEL 103 MMOL/L (98-107); CK-MB VALUE MASS < 1.0 NG/ML (<3.6); CREATININE FOR GFR 2.16 MG/DL (0.70-1.30); GLOMERULAR FILTRATION RATE 31.7 (>42); GLUCOSE, FASTING 75 MG/DL (74-106); POTASSIUM SERUM 4.9 MMOL/L (3.5-5.1); SODIUM LEVEL 136 MMOL/L (136-145); TOTAL PROTEIN 6.9 G/DL (5.7-8.2)
[2023-09-22 16:29] LABS: CPK CREATINE PHOSPHOKINASE 114 U/L (46-171); MB/CK RELATIVE INDEX 0.87 (< OR =4)
[2023-09-22 17:34] LABS: VENOUS BASE EXCESS -0.6 (-2.0-2.0); VENOUS HCO3 24.7 MMOL/L (23.0-27.0); VENOUS O2 SATURATION 51.4 % (60.0-80.0); VENOUS PARTIAL PRESSURE CO2 43.3 mmHg (38.0-50.0); VENOUS PARTIAL PRESSURE O2 28.2 mmHg (30.0-50.0); VENOUS PH 7.374 UNITS (7.330-7.430)
[2023-09-22] MEDS: MORPHINE 2 MG/ML 1ML VIAL IV ONE (17:41)
[2023-09-22] MEDS: BOOSTRIX VACCINE (TETANUS/DIPHTH/ACEL. PERTUSSIS) 0.5ML SYR IM.IMMUN ONE (17:42)
[2023-09-22] MEDS ORDERED: TURM500C3 PO (18:25)
[2023-09-22] MEDS ORDERED: D 101000 PO (18:25)
[2023-09-22] MEDS ORDERED: ASCO500T PO (18:25)
[2023-09-22] MEDS ORDERED: VITA400C83 PO (18:25)
[2023-09-22] MEDS ORDERED: ONDA-83 PO (18:25)
[2023-09-22] MEDS ORDERED: LIDO1PAD TOP (18:25)
[2023-09-22] MEDS ORDERED: HOME MED LIST COMPLETE! XX SCH (18:30)
[2023-09-22 18:45] LABS: CK-MB VALUE MASS 1.1 NG/ML (<3.6)
[2023-09-22 18:51] LABS: MB/CK RELATIVE INDEX 0.56 (< OR =4)
[2023-09-22] MEDS: NS 1,000 ML IV SCH (19:44)
[2023-09-22] MEDS ORDERED: ONDANSETRON 4MG 2ML VIAL IV PRN (20:00)
[2023-09-22] MEDS ORDERED: MOM 30ML SUSPENSION UDC PO PRN (20:00)
[2023-09-22] MEDS ORDERED: PERCOCET 5MG/325MG TAB PO PRN ×2 (20:00)
[2023-09-22] MEDS ORDERED: SENOKOT S TAB PO PRN (20:00)
[2023-09-22] MEDS ORDERED: MORPHINE 4 MG/ML 1ML VIAL IV PRN (20:00)
[2023-09-22] MEDS ORDERED: NALOXONE INJ 0.4MG/1ML VIAL IV PRN (20:00)
[2023-09-22] MEDS ORDERED: MIRALAX *UNIT DOSE* 17GM PACKET PO PRN (20:00)
[2023-09-22] MEDS ORDERED: MECLIZINE 25 MG TABLET PO PRN (20:05)
[2023-09-22] MEDS ORDERED: CYCLOBENZAPRINE 5MG TABLET PO PRN (20:05)
[2023-09-22] MEDS ORDERED: PILL CUTTER 1 EACH XX PRN (20:15)
[2023-09-22 20:27] LABS: TOTAL PROTEIN,RANDOM URINE 20.8 MG/DL (0.0-14.0)
[2023-09-22 20:29] LABS: AMPHETAMINES LEVEL URINE NEGATIVE (NEGATIVE); BARBITURATES URINE NEGATIVE (NEGATIVE); BENZODIAZEPINES URINE NEGATIVE (NEGATIVE); COCAINE METABOLITE URINE NEGATIVE (NEGATIVE); METHADONE URINE NEGATIVE (NEGATIVE)
[2023-09-22 20:30] LABS: CANNABINOIDS URINE NEGATIVE (NEGATIVE); OPIATES URINE POSITIVE (NEGATIVE); PHENCYCLIDINE URINE NEGATIVE (NEGATIVE)
[2023-09-22] MEDS: PERCOCET 5MG/325MG TAB PO ONE (22:04)
[2023-09-22 22:26] VITALS: BP 114/75; TEMP 98.2; O2SAT 99
[2023-09-22 22:42] LABS: CALCIUM LEVEL 8.6 MG/DL (8.3-10.6); CREATININE FOR GFR 2.05 MG/DL (0.70-1.30); GLOMERULAR FILTRATION RATE 33.7 (>42); POTASSIUM SERUM 4.9 MMOL/L (3.5-5.1)
[2023-09-22] MEDS: LIDOCAINE 5% (LIDODERM) PATCH TOP SCH (22:47)
[2023-09-23] VITALS (9 sets, daily range): BP systolic 108–130; BP diastolic 60–72; TEMP 97.3–97.9; O2SAT 85–98
[2023-09-23 06:26] LABS: HEMATOCRIT 31.1 % (42.0-52.0); MEAN CORPUSCULAR HEMOGLOBIN 29.1 pg (27.0-33.0); MEAN CORPUSCULAR HGB CONC 32.2 g/dl (32.0-36.5); MEAN CORPUSCULAR VOLUME 90.4 fl (80.0-96.0); PLATELET COUNT, AUTOMATED 167 10^3/uL (150-450); RED BLOOD COUNT 3.44 10^6/uL (4.30-6.10); WHITE BLOOD COUNT 7.5 10^3/uL (4.0-10.0)
[2023-09-23 06:52] LABS: CALCIUM LEVEL 8.4 MG/DL (8.3-10.6); CREATININE FOR GFR 1.75 MG/DL (0.70-1.30); GLOMERULAR FILTRATION RATE 40.4 (>42); POTASSIUM SERUM 4.5 MMOL/L (3.5-5.1)
[2023-09-23] MEDS ORDERED: ONDANSETRON 4MG 2ML VIAL IV PRN (08:35)
[2023-09-23] MEDS ORDERED: fentaNYL 100 MCG/2 ML INJECTION IV PRN (08:35)
[2023-09-23] MEDS ORDERED: MEPERIDINE 25 MG/ML 1ML VIAL IV PRN (08:35)
[2023-09-23] MEDS ORDERED: HYDROMORPHONE HCL 0.5 MG/ 0.5 ML SYRINGE IV PRN (08:35)
[2023-09-23] MEDS ORDERED: oxyCODONE 5MG TAB PO PRN (08:35)
[2023-09-23] MEDS: NS 1,000 ML IV ONE (08:38)
[2023-09-23] MEDS: HYDROMORPHONE HCL 0.5 MG/ 0.5 ML SYRINGE IV ONE (08:39)
[2023-09-23] MEDS: ASCORBIC ACID 500 MG TAB PO SCH (08:40)
[2023-09-23] MEDS: ROSUVASTATIN 10 MG TAB (CRESTOR) PO SCH (08:40)
[2023-09-23] MEDS: KETOROLAC 30 MG/ML 1ML VIAL IV ONE (08:40)
[2023-09-23] MEDS: ceFAZolin 2 GM/D5W 50 ML IV BAG IV ONE (09:52)
[2023-09-23] MEDS ORDERED: MIDAZOLAM INJ 2MG/2ML VIAL As Ordered ONE (10:11)
[2023-09-23] MEDS ORDERED: LIDOCAINE 2% 100MG/5ML SDV (FOR ANES.) As Ordered ONE (10:11)
[2023-09-23] MEDS ORDERED: fentaNYL 100 MCG/2 ML INJECTION As Ordered ONE (10:11)
[2023-09-23] MEDS ORDERED: propofoL 200 MG/20 ML VIAL As Ordered ONE (10:11)
[2023-09-23] MEDS ORDERED: PHENYLephrine 500MCG 5ML (100MCG/ML) SYRINGE As Ordered ONE (10:46)
[2023-09-23] MEDS ORDERED: ONDANSETRON 4MG 2ML VIAL As Ordered ONE (10:50)
[2023-09-23] MEDS ORDERED: ACETAMINOPHEN 1000MG 100ML IV BAG As Ordered ONE (10:55)
[2023-09-23] MEDS: ceFAZolin SOD 2 GM in IV 1 EA IV SCH (18:20)
[2023-09-23] MEDS: HYDROMORPHONE HCL 0.5 MG/ 0.5 ML SYRINGE IV PRN (18:21)
[2023-09-24 01:30] VITALS: BP 111/72; TEMP 97.1; O2SAT 91
[2023-09-24 05:30] VITALS: BP 122/71; TEMP 97.9; O2SAT 93
[2023-09-24 06:45] LABS: HEMATOCRIT 32.8 % (42.0-52.0); HEMOGLOBIN 10.9 g/dl (13.5-17.5); MEAN CORPUSCULAR HEMOGLOBIN 29.4 pg (27.0-33.0); MEAN CORPUSCULAR HGB CONC 33.2 g/dl (32.0-36.5); MEAN CORPUSCULAR VOLUME 88.4 fl (80.0-96.0); PLATELET COUNT, AUTOMATED 186 10^3/uL (150-450); RED BLOOD COUNT 3.71 10^6/uL (4.30-6.10); WHITE BLOOD COUNT 18.4 10^3/uL (4.0-10.0)
[2023-09-24 07:08] LABS: CALCIUM LEVEL 8.6 MG/DL (8.3-10.6); CREATININE FOR GFR 1.73 MG/DL (0.70-1.30); POTASSIUM SERUM 4.8 MMOL/L (3.5-5.1)
[2023-09-24 08:00] VITALS: BP 119/71; TEMP 97.7; O2SAT 97
[2023-09-24] MEDS: HYDROMORPHONE HCL 0.5 MG/ 0.5 ML SYRINGE IV PRN (08:52)
[2023-09-24] MEDS: oxyCODONE 5MG TAB PO SCH (09:00)
[2023-09-24] MEDS ORDERED: FLEET ENEMA PR PRN (09:35)
[2023-09-24] MEDS ORDERED: MOM 30ML SUSPENSION UDC PO PRN (09:35)
[2023-09-24] MEDS ORDERED: NALOXONE INJ 0.4MG/1ML VIAL IV PRN (09:35)
[2023-09-24] MEDS: carisoprodoL 350 MG TAB PO ONE (11:37)
[2023-09-24] MEDS: SENOKOT S TAB PO SCH (11:37)
[2023-09-24] MEDS: ENOXAPARIN 30MG/0.3ML SYRINGE (J1650 PER 10MG) SC ONE (11:47)
[2023-09-24] MEDS: ACETAMINOPHEN 500 MG TAB PO SCH (11:48)
[2023-09-24 12:00] VITALS: BP 125/68; TEMP 97.7; O2SAT 90
[2023-09-24 21:30] VITALS: BP 140/65; TEMP 98.1; O2SAT 93
[2023-09-24] MEDS: MIRALAX *UNIT DOSE* 17GM PACKET PO SCH (21:31)
[2023-09-24] MEDS: ACETAMINOPHEN TAB 650MG DOSE (2X325MG) PO PRN (21:32)
[2023-09-25 04:10] VITALS: BP 122/64; TEMP 97.7; O2SAT 94
[2023-09-25 06:27] LABS: HEMATOCRIT 29.4 % (42.0-52.0); HEMOGLOBIN 9.6 g/dl (13.5-17.5); MEAN CORPUSCULAR HEMOGLOBIN 29.1 pg (27.0-33.0); MEAN CORPUSCULAR HGB CONC 32.7 g/dl (32.0-36.5); MEAN CORPUSCULAR VOLUME 89.1 fl (80.0-96.0); PLATELET COUNT, AUTOMATED 158 10^3/uL (150-450); WHITE BLOOD COUNT 11.2 10^3/uL (4.0-10.0)
[2023-09-25 06:55] LABS: CALCIUM LEVEL 8.4 MG/DL (8.3-10.6); CREATININE FOR GFR 1.66 MG/DL (0.70-1.30); POTASSIUM SERUM 4.6 MMOL/L (3.5-5.1)
[2023-09-25] MEDS: ENOXAPARIN 40MG/0.4ML SYRINGE (J1650 PER 10MG) SC SCH (08:36)
[2023-09-25] MEDS: HYDROMORPHONE HCL 0.5 MG/ 0.5 ML SYRINGE IV ONE (10:47)
[2023-09-25] MEDS ORDERED: OXYC1TAB23 PO (10:51)
[2023-09-25] MEDS ORDERED: MIRA33506 PO (10:51)
[2023-09-25] MEDS ORDERED: SENN-52 PO (10:51)
[2023-09-25] MEDS ORDERED: ASPI-655 PO (10:56)
== END 2023-09-25 13:56 | disposition home or self-care (01) | DRG 481 ==
LOC: M ED 13:44 → EDBD 13:44 → M ED INP 18:02 → M MSPAV 22:14
PROVIDERS: ADMIT General Practice; ATTEND General Practice
PROC: 0QS734Z Reposition Left Upper Femur with Internal Fixation Device, Percutaneous Approach (ICD-10-PCS; principal; 2023-09-23 10:30)
DX: S72.142A Displaced intertrochanteric fracture of left femur, initial encounter for closed fracture (principal); N17.9 Acute kidney failure, unspecified; I12.9 Hypertensive chronic kidney disease with stage 1 through stage 4 chronic kidney disease, or unspecified chronic kidney disease; N18.30 Chronic kidney disease, stage 3 unspecified; E78.5 Hyperlipidemia, unspecified; D23.4 Other benign neoplasm of skin of scalp and neck; Z87.891 Personal history of nicotine dependence; Z79.899 Other long term (current) drug therapy; Z79.82 Long term (current) use of aspirin; W18.30XA Fall on same level, unspecified, initial encounter; Y92.009 Unspecified place in unspecified non-institutional (private) residence as the place of occurrence of the external cause

== ENCOUNTER → 2023-10-05 | Outpatient (CLI) | payer MEDICARE ==
[~2023-10-05] MED LIST changes: +ASCO500T PO; +ASPI-655 PO; +CYCL5TAB PO; +D 101000 PO; +IBUP80TA PO; +LIDO1PAD TOP; +LISI10TA22 PO; +MECL-86 PO; +MIRA33506 PO; +ONDA-83 PO; +OXYC1TAB23 PO; +ROSU5TAB40 PO; +SENN-52 PO; +TURM500C3 PO; +VITA400C83 PO
== END ==
LOC: M SOG 08:06
PROVIDERS: ATTEND Physician Assistant
DX: Z47.89 Encounter for other orthopedic aftercare (principal); S72.002D Fracture of unspecified part of neck of left femur, subsequent encounter for closed fracture with routine healing

== ENCOUNTER → 2023-11-06 | Outpatient (CLI) | payer MEDICARE | LOC: M SOG 07:57 | PROVIDERS: ATTEND Physician Assistant | DX: Z47.89 Encounter for other orthopedic aftercare (principal); S72.002A Fracture of unspecified part of neck of left femur, initial encounter for closed fracture; Y93.9 Activity, unspecified; Y92.9 Unspecified place or not applicable ==

== ENCOUNTER → 2023-11-17 | Outpatient (CLI) | payer MEDICARE | LOC: M RAD 06:26 | PROVIDERS: ATTEND Physician Assistant | DX: S72.002A Fracture of unspecified part of neck of left femur, initial encounter for closed fracture (principal); M25.552 Pain in left hip; Y93.9 Activity, unspecified; Y92.9 Unspecified place or not applicable ==

== ENCOUNTER 2024-01-05 13:47 | Inpatient (IN) | payer MEDICARE ==
[~2024-01-05] VITALS: Ht 177.8 cm; Wt 66.9 kg
[~2024-01-05 13:47] MED LIST changes: +E-401CAP2 PO; -VITA400C83 PO
[2024-01-05] MEDS ORDERED: ISOVUE-370 76% 100ML VIAL As Ordered ONE (14:12)
[2024-01-05 14:52] LABS: INR 1.11; PARTIAL THROMBOPLASTIN TIME 28.3 SECONDS (24.8-34.2)
[2024-01-05] MEDS: ACETAMINOPHEN 325 MG TAB PO ONE (14:52)
[2024-01-05 14:54] LABS: BASO % 0.1 % (0.0-1.0); HEMATOCRIT 32.5 % (42.0-52.0); HEMOGLOBIN 10.4 g/dl (13.5-17.5); LYMPH # 0.9 10^3/uL (1.5-5.0); LYMPH % 8.4 % (24.0-44.0); MEAN CORPUSCULAR HEMOGLOBIN 28.3 pg (27.0-33.0); MEAN CORPUSCULAR VOLUME 88.6 fl (80.0-96.0); MONO % 9.5 % (2.0-8.0); NEUTROPHILS # 8.5 10^3/uL (1.5-8.5); NEUTROPHILS % 81.4 % (36.0-66.0); PLATELET COUNT, AUTOMATED 294 10^3/uL (150-450); RED BLOOD COUNT 3.67 10^6/uL (4.30-6.10); WHITE BLOOD COUNT 10.4 10^3/uL (4.0-10.0)
[2024-01-05] MEDS: NS 1,910 ML in IV 1 EA IV ONE (14:56)
[2024-01-05 15:33] LABS: ALBUMIN 2.9 G/DL (3.2-5.2); BILIRUBIN,DIRECT 0.2 MG/DL (<0.4); BILIRUBIN,TOTAL 0.4 MG/DL (0.3-1.2); TOTAL PROTEIN 6.7 G/DL (5.7-8.2)
[2024-01-05] MEDS: cefTRIAXone SOD 1 GM in D5W MINI-BAG PLUS 50 ML IV ONE (16:35)
[2024-01-05] MEDS ORDERED: GABA-1171 PO (16:50)
[2024-01-05] MEDS ORDERED: ASPI-615 PO (16:50)
[2024-01-05] MEDS ORDERED: DULO1CAP5 PO (16:50)
[2024-01-05] MEDS ORDERED: HOME MED LIST COMPLETE! XX SCH (16:55)
[2024-01-05 17:45] LABS: CALCIUM LEVEL 9.3 MG/DL (8.3-10.6); CREATININE FOR GFR 1.55 MG/DL (0.70-1.30); GLOMERULAR FILTRATION RATE 46.4 (>42); POTASSIUM SERUM 4.2 MMOL/L (3.5-5.1)
[2024-01-05] MEDS: VANCOMYCIN 1,500 MG/300 ML IV BAG *LOAD IV ONE (18:24)
[2024-01-05 18:50] LABS: CALCIUM LEVEL 8.7 MG/DL (8.3-10.6); CREATININE FOR GFR 1.45 MG/DL (0.70-1.30); GLOMERULAR FILTRATION RATE 50.1 (>42); POTASSIUM SERUM 4.2 MMOL/L (3.5-5.1)
[2024-01-05 18:58] LABS: PROCALCITONIN 0.23 ng/ml
[2024-01-05 19:08] LABS: HEMOGLOBIN A1c 5.2 % (4.0-6.0)
[2024-01-05] MEDS ORDERED: PILL CUTTER 1 EACH XX PRN (21:50)
[2024-01-05] MEDS: DULoxetine 30MG CAPSULE (CYMBALTA) PO SCH (22:00)
[2024-01-05] MEDS: GABAPENTIN 100 MG CAP PO SCH (22:00)
[2024-01-05] MEDS: ROSUVASTATIN 10 MG TAB (CRESTOR) PO SCH (22:01)
[2024-01-06 04:00] VITALS: BP 145/65; TEMP 97.7; O2SAT 95
[2024-01-06 07:10] LABS: HEMATOCRIT 27.3 % (42.0-52.0); HEMOGLOBIN 8.7 g/dl (13.5-17.5); MEAN CORPUSCULAR HEMOGLOBIN 28.5 pg (27.0-33.0); MEAN CORPUSCULAR HGB CONC 31.9 g/dl (32.0-36.5); MEAN CORPUSCULAR VOLUME 89.5 fl (80.0-96.0); PLATELET COUNT, AUTOMATED 245 10^3/uL (150-450); RED BLOOD COUNT 3.05 10^6/uL (4.30-6.10); WHITE BLOOD COUNT 10.1 10^3/uL (4.0-10.0)
[2024-01-06 07:35] VITALS: BP 115/56; TEMP 97.9; O2SAT 97
[2024-01-06 07:35] LABS: CALCIUM LEVEL 8.7 MG/DL (8.3-10.6); CREATININE FOR GFR 1.28 MG/DL (0.70-1.30); GLOMERULAR FILTRATION RATE 57.9 (>42); POTASSIUM SERUM 4.2 MMOL/L (3.5-5.1)
[2024-01-06] MEDS: ENOXAPARIN 40MG/0.4ML SYRINGE (J1650 PER 10MG) SC SCH (09:54)
[2024-01-06] MEDS: ASPIRIN 81MG ENTERIC TABLET PO SCH (09:54)
[2024-01-06 10:05] LABS: CHOLESTEROL RISK RATIO 2.62 (<5); HDL CHOLESTEROL 44.6 MG/DL (>40); LDL CHOLESTEROL 61.8 MG/DL (<100); NON-HDL-C 72.4 MG/DL
[2024-01-06 10:44] LABS: C REACTIVE PROTEIN QUANTITATIV 20.7 MG/DL (<1.0)
[2024-01-06] MEDS: VANCOMYCIN HCL 1,000 MG, VIAL MATE ADAPTER 1 EACH in D5W 250 ML IV SCH (13:45)
[2024-01-06 16:37] VITALS: BP 128/53; TEMP 98.6; O2SAT 99
[2024-01-06] MEDS: cefTRIAXone SOD 2 GM in D5W MINI-BAG PLUS 50 ML IV SCH (16:55)
[2024-01-06 17:48] LABS: CPK CREATINE PHOSPHOKINASE 25 U/L (46-171)
[2024-01-06 18:21] LABS: HIV 1&2 SCREEN NEGATIVE (NEGATIVE)
[2024-01-06] MEDS ORDERED: PROHANCE 279.3MG/ML 15ML VIAL As Ordered ONE (19:23)
[2024-01-06 20:00] VITALS: BP 149/66; TEMP 99.3; O2SAT 95
[2024-01-06] MEDS: GASTROGRAFIN SOLUTION 30ML PO SCH (20:11)
[2024-01-06] MEDS: GABAPENTIN 100 MG CAP PO SCH (20:32)
[2024-01-07 06:06] VITALS: BP 142/66; TEMP 99; O2SAT 97
[2024-01-07 07:41] VITALS: BP 145/65; TEMP 98.7; O2SAT 98
[2024-01-07 08:17] LABS: BASO % 0.3 % (0.0-1.0); EOS # 0.2 10^3/uL (0.0-0.5); EOS % 2.1 % (0.0-3.0); HEMATOCRIT 27.2 % (42.0-52.0); HEMOGLOBIN 8.7 g/dl (13.5-17.5); LYMPH % 11.9 % (24.0-44.0); MEAN CORPUSCULAR HEMOGLOBIN 28.3 pg (27.0-33.0); MEAN CORPUSCULAR VOLUME 88.6 fl (80.0-96.0); MONO # 0.9 10^3/uL (0.0-0.8); MONO % 11.2 % (2.0-8.0); NEUTROPHILS # 5.9 10^3/uL (1.5-8.5); NEUTROPHILS % 74.1 % (36.0-66.0); PLATELET COUNT, AUTOMATED 260 10^3/uL (150-450); RED BLOOD COUNT 3.07 10^6/uL (4.30-6.10)
[2024-01-07 08:40] LABS: VANCOMYCIN LEVEL TROUGH 11.4 UG/ML (10.0-20.0)
[2024-01-07 08:46] LABS: ALBUMIN 2.2 G/DL (3.2-5.2); ALKALINE PHOSPHATASE 89 U/L (46-116); ALT/SGPT 22 U/L (7.0-40); AST/SGOT 25 U/L (<34); BILIRUBIN,TOTAL 0.3 MG/DL (0.3-1.2); BLOOD UREA NITROGEN 25 MG/DL (9-23); CALCIUM LEVEL 8.7 MG/DL (8.3-10.6); CARBON DIOXIDE LEVEL 25 MMOL/L (20-31); CHLORIDE LEVEL 106 MMOL/L (98-107); CREATININE FOR GFR 1.21 MG/DL (0.70-1.30); GLOMERULAR FILTRATION RATE > 60.0 (>42); GLUCOSE, FASTING 96 MG/DL (74-106); POTASSIUM SERUM 4.1 MMOL/L (3.5-5.1); SODIUM LEVEL 136 MMOL/L (136-145); TOTAL PROTEIN 5.5 G/DL (5.7-8.2)
[2024-01-07 09:19] LABS: FREE T4 1.34 NG/DL (0.89-1.76); THYROID STIMULATING HORMONE 0.153 uIU/ML (0.55-4.78)
[2024-01-07] MEDS: ACETAMINOPHEN 500 MG TAB PO PRN (10:23)
[2024-01-07 15:57] VITALS: BP 143/67; TEMP 98.5; O2SAT 99
[2024-01-07 19:48] VITALS: BP 140/70; TEMP 98.2; O2SAT 98
[2024-01-07] MEDS: SINEMET 12.5MG/50MG PER 1/2 TABLET PO SCH (20:02)
[2024-01-08 03:29] VITALS: BP 146/75; TEMP 98; O2SAT 97
[2024-01-08 05:45] LABS: HEMATOCRIT 26.6 % (42.0-52.0); HEMOGLOBIN 8.3 g/dl (13.5-17.5); MEAN CORPUSCULAR HEMOGLOBIN 27.4 pg (27.0-33.0); MEAN CORPUSCULAR HGB CONC 31.2 g/dl (32.0-36.5); MEAN CORPUSCULAR VOLUME 87.8 fl (80.0-96.0); PLATELET COUNT, AUTOMATED 265 10^3/uL (150-450); RED BLOOD COUNT 3.03 10^6/uL (4.30-6.10); WHITE BLOOD COUNT 6.3 10^3/uL (4.0-10.0)
[2024-01-08 07:26] VITALS: BP 142/65; TEMP 97.8; O2SAT 95
[2024-01-08] MEDS: DONEPEZIL 5 MG TAB PO SCH (09:32)
[2024-01-08] MEDS: CYANOCOBALAMIN 1,000MCG/ML 1ML VIAL IM SCH (09:34)
[2024-01-08 16:02] VITALS: BP 147/72; TEMP 98; O2SAT 97
[2024-01-08 18:03] LABS: FREE T3 2.6 PG/ML (2.3-4.2); THYROID STIMULATING HORMONE 0.452 uIU/ML (0.55-4.78)
[2024-01-08 18:04] LABS: FREE T4 1.25 NG/DL (0.89-1.76)
[2024-01-08 19:23] VITALS: BP 139/67; TEMP 97.5; O2SAT 98
[2024-01-09 03:58] VITALS: BP 148/76; TEMP 97.8; O2SAT 97
[2024-01-09 07:32] LABS: BASO % 0.4 % (0.0-1.0); EOS # 0.2 10^3/uL (0.0-0.5); EOS % 3.5 % (0.0-3.0); HEMATOCRIT 28.2 % (42.0-52.0); HEMOGLOBIN 8.8 g/dl (13.5-17.5); LYMPH % 22.3 % (24.0-44.0); MEAN CORPUSCULAR HEMOGLOBIN 27.3 pg (27.0-33.0); MEAN CORPUSCULAR HGB CONC 31.2 g/dl (32.0-36.5); MEAN CORPUSCULAR VOLUME 87.6 fl (80.0-96.0); MONO # 0.8 10^3/uL (0.0-0.8); MONO % 16.7 % (2.0-8.0); NEUTROPHILS # 2.6 10^3/uL (1.5-8.5); NEUTROPHILS % 56.5 % (36.0-66.0); PLATELET COUNT, AUTOMATED 278 10^3/uL (150-450); RED BLOOD COUNT 3.22 10^6/uL (4.30-6.10); WHITE BLOOD COUNT 4.6 10^3/uL (4.0-10.0)
[2024-01-09 07:57] LABS: CALCIUM LEVEL 8.9 MG/DL (8.3-10.6); CREATININE FOR GFR 1.34 MG/DL (0.70-1.30); GLOMERULAR FILTRATION RATE 54.9 (>42); POTASSIUM SERUM 3.8 MMOL/L (3.5-5.1)
[2024-01-09 08:23] VITALS: BP 133/62; TEMP 98.6; O2SAT 97
[2024-01-09 11:13] VITALS: BP 142/66; TEMP 99.1; O2SAT 95
[2024-01-09 13:47] LABS: ANTI SMITH(Sm) AB <1.0 NEG AI (<1.0 NEG)
[2024-01-09 15:37] LABS: ANA PATTERN Nuclear, Homogeneous (NEGATIVE); ANA PATTERN 2 Nuclear, Speckled; ANA SCREEN, IFA POSITIVE (NEGATIVE)
[2024-01-09 16:03] VITALS: BP 139/65; TEMP 99.1; O2SAT 96
[2024-01-09 20:03] VITALS: BP 138/66; TEMP 98.1; O2SAT 96
[2024-01-10 04:25] VITALS: BP 148/67; TEMP 98.3; O2SAT 93
[2024-01-10 07:45] VITALS: BP 135/79; TEMP 98.2; O2SAT 96
[2024-01-10 16:00] VITALS: BP 140/68; TEMP 98.3; O2SAT 93
[2024-01-10 18:58] VITALS: BP 138/74; TEMP 98.1; O2SAT 96
[2024-01-10 19:06] LABS: LYME TOTAL ANTIBODY CIA <= 0.90 Index (<=0.90)
[2024-01-10 19:18] VITALS: BP 162/111; TEMP 98.6; O2SAT 99
[2024-01-10 19:33] VITALS: BP 141/74; TEMP 98.2; O2SAT 96
[2024-01-11 04:08] LABS: COPPER PLASMA 107 mcg/dL (70-175)
[2024-01-11 04:15] VITALS: BP 140/73; TEMP 98.4; O2SAT 95
[2024-01-11 06:16] LABS: HEMATOCRIT 30.8 % (42.0-52.0); HEMOGLOBIN 9.7 g/dl (13.5-17.5); MEAN CORPUSCULAR HEMOGLOBIN 27.8 pg (27.0-33.0); MEAN CORPUSCULAR HGB CONC 31.5 g/dl (32.0-36.5); MEAN CORPUSCULAR VOLUME 88.3 fl (80.0-96.0); PLATELET COUNT, AUTOMATED 311 10^3/uL (150-450); RED BLOOD COUNT 3.49 10^6/uL (4.30-6.10); WHITE BLOOD COUNT 5.6 10^3/uL (4.0-10.0)
[2024-01-11 07:43] LABS: CREATININE FOR GFR 1.3 MG/DL (0.70-1.30); GLOMERULAR FILTRATION RATE 56.8 (>42); POTASSIUM SERUM 4.6 MMOL/L (3.5-5.1)
[2024-01-11 11:54] VITALS: BP 132/72; TEMP 97.9; O2SAT 97
[2024-01-11 12:03] LABS: THRYOGLOBULIN ANTIBODIES (ATA) < 1 IU/mL (< or = 1); THYROGLOBULIN QUANTITATIVE 6.8 ng/mL (2.8-40.9)
[2024-01-11 20:33] VITALS: BP 129/72; TEMP 98.8; O2SAT 96
[2024-01-12 04:00] VITALS: BP 121/8; TEMP 97.9; O2SAT 96
[2024-01-12 12:00] VITALS: BP 126/67; TEMP 98.2; O2SAT 95
[2024-01-12 15:42] LABS: ANTI DS-DNA AB NEGATIVE (NEGATIVE)
[2024-01-12 17:48] LABS: BORRELIA SPECIES DNA NOT DETECTED (NOT DETECT)
[2024-01-12 17:53] LABS: Anaplasma phagocytophilum NOT DETECTED (NOT DETECT); Babesia microti NOT DETECTED (NOT DETECT); Ehrlichia chaffeensis NOT DETECTED (NOT DETECT)
[2024-01-13 04:00] VITALS: BP 124/74; TEMP 97.7; O2SAT 97
[2024-01-14 04:00] VITALS: BP 126/75; TEMP 98.6; O2SAT 96
[2024-01-14 07:23] LABS: HEMATOCRIT 29.6 % (42.0-52.0); HEMOGLOBIN 9.4 g/dl (13.5-17.5); MEAN CORPUSCULAR HEMOGLOBIN 27.8 pg (27.0-33.0); MEAN CORPUSCULAR HGB CONC 31.8 g/dl (32.0-36.5); MEAN CORPUSCULAR VOLUME 87.6 fl (80.0-96.0); PLATELET COUNT, AUTOMATED 344 10^3/uL (150-450); RED BLOOD COUNT 3.38 10^6/uL (4.30-6.10); WHITE BLOOD COUNT 6.8 10^3/uL (4.0-10.0)
[2024-01-14 18:12] LABS: VITAMIN B1 LEVEL WHOLE BLOOD 92 nmol/L (78-185); VITAMIN B6,PYRIDOXAL PHOSPHATE < 2.0 ng/mL (2.1-21.7)
[2024-01-15 04:29] VITALS: BP 129/75; TEMP 97.7; O2SAT 96
[2024-01-15] MEDS ORDERED: CARB25TA9 PO (09:43)
[2024-01-15] MEDS ORDERED: GABA-1171 PO (09:43)
[2024-01-15] MEDS ORDERED: ARIC1TAB PO (09:43)
[2024-01-15] MEDS ORDERED: B-650TAB2 PO (09:43)
[2024-01-15] MEDS ORDERED: METH25TAB PO (09:43)
[2024-01-15] MEDS ORDERED: CYAN1000VL IM (09:48)
== END 2024-01-15 11:20 | DRG 872 ==
LOC: M ED 13:47 → EDBD 13:47 → M ED INP 13:48 → M MS4PR 21:38 → M PCU 01-06 07:20 → OBSVTOIN 01-07 06:39 → M MS5PR 01-10 18:51
PROVIDERS: ADMIT Internal Medicine; ATTEND Family Medicine
DX: A41.9 Sepsis, unspecified organism (principal); R44.3 Hallucinations, unspecified; N17.9 Acute kidney failure, unspecified; I12.9 Hypertensive chronic kidney disease with stage 1 through stage 4 chronic kidney disease, or unspecified chronic kidney disease; N18.9 Chronic kidney disease, unspecified; E05.20 Thyrotoxicosis with toxic multinodular goiter without thyrotoxic crisis or storm; F02.80 Dementia in other diseases classified elsewhere, unspecified severity, without behavioral disturbance, psychotic disturbance, mood disturbance, and anxiety; G31.83 Neurocognitive disorder with Lewy bodies; E78.5 Hyperlipidemia, unspecified; E53.8 Deficiency of other specified B group vitamins; G89.29 Other chronic pain; Z66 Do not resuscitate; Z79.899 Other long term (current) drug therapy; Z79.82 Long term (current) use of aspirin

== ENCOUNTER → 2024-02-16 | Outpatient (REF) | payer MEDICARE ==
[~2024-02-16] MED LIST changes: +ARIC1TAB PO; +ASPI-615 PO; +B-650TAB2 PO; +CARB25TA9 PO; +CYAN1000VL IM; -CYCL5TAB PO; +CYCL5TAB4 PO; +DULO1CAP5 PO; +GABA-1171 PO; +METH25TAB PO; -ROSU5TAB40 PO; +ROSU5TAB49 PO
== END ==
LOC: M SFHCLERA 09:04
PROVIDERS: ATTEND Physician Assistant
DX: E03.8 Other specified hypothyroidism (principal); I10 Essential (primary) hypertension; R79.89 Other specified abnormal findings of blood chemistry; E53.1 Pyridoxine deficiency

== ENCOUNTER → 2024-04-09 | Outpatient (CLI) | payer MEDICARE ==
[~2024-04-09] MED LIST changes: +METH-1386 PO; -METH25TAB PO
== END ==
LOC: M SOG 13:17
PROVIDERS: ATTEND Physician Assistant
DX: M17.11 Unilateral primary osteoarthritis, right knee (principal)

== ENCOUNTER → 2024-05-29 | Outpatient (CLI) | payer MEDICARE ==
[2024-05-29 15:26] LABS: BASO % 0.5 % (0.0-1.0); EOS # 0.1 10^3/uL (0.0-0.5); EOS % 2.2 % (0.0-3.0); HEMATOCRIT 37.2 % (42.0-52.0); HEMOGLOBIN 11.5 g/dl (13.5-17.5); LYMPH # 1.4 10^3/uL (1.5-5.0); LYMPH % 22.5 % (24.0-44.0); MEAN CORPUSCULAR HEMOGLOBIN 27.2 pg (27.0-33.0); MEAN CORPUSCULAR HGB CONC 30.9 g/dl (32.0-36.5); MEAN CORPUSCULAR VOLUME 87.9 fl (80.0-96.0); MONO # 0.5 10^3/uL (0.0-0.8); MONO % 7.5 % (2.0-8.0); NEUTROPHILS # 4.2 10^3/uL (1.5-8.5); PLATELET COUNT, AUTOMATED 303 10^3/uL (150-450); RED BLOOD COUNT 4.23 10^6/uL (4.30-6.10); WHITE BLOOD COUNT 6.3 10^3/uL (4.0-10.0)
[2024-05-29 15:42] LABS: ALBUMIN 3.4 G/DL (3.2-5.2); ALKALINE PHOSPHATASE 118 U/L (40-129); ALT/SGPT < 9 U/L (7.0-40); AST/SGOT 19 U/L (<34); BILIRUBIN,TOTAL 0.3 MG/DL (0.3-1.2); BLOOD UREA NITROGEN 26 MG/DL (9-23); CARBON DIOXIDE LEVEL 29 MMOL/L (20-31); CHLORIDE LEVEL 104 MMOL/L (98-107); CREATININE FOR GFR 1.48 MG/DL (0.70-1.30); GLOMERULAR FILTRATION RATE 48.9 (>42); GLUCOSE, FASTING 75 MG/DL (74-106); POTASSIUM SERUM 5.2 MMOL/L (3.5-5.1); SODIUM LEVEL 140 MMOL/L (136-145); TOTAL PROTEIN 6.6 G/DL (5.7-8.2)
[2024-05-29 15:44] LABS: FREE T3 2.7 PG/ML (2.3-4.2); THYROID STIMULATING HORMONE 0.205 uIU/ML (0.55-4.78)
[2024-05-29 15:45] LABS: FREE T4 1.04 NG/DL (0.89-1.76)
== END ==
LOC: M WUC 10:52
PROVIDERS: ATTEND Family Medicine
DX: E05.90 Thyrotoxicosis, unspecified without thyrotoxic crisis or storm (principal)

== ENCOUNTER → 2024-08-06 | Outpatient (CLI) | payer MEDICARE | LOC: M RAD 11:28 | PROVIDERS: ATTEND Physician Assistant Medical | DX: R07.81 Pleurodynia (principal) ==

== ENCOUNTER 2024-11-05 14:35 | Outpatient (RCR) | payer MEDICARE ==
[~2024-11-05 14:35] MED LIST changes: +TURM1CAP7 PO; -TURM500C3 PO
== END 2024-11-07 | disposition home or self-care (01) ==
LOC: M ST 14:35
PROVIDERS: ATTEND Family Medicine
DX: G20.A1 Parkinson's disease without dyskinesia, without mention of fluctuations (principal)

== ENCOUNTER → 2024-11-21 | Outpatient (CLI) | payer MEDICARE ==
[~2024-11-21] MED LIST changes: +MEMA10TA PO; +TUMERIC PO; +VITA100T14 PO; +VITA500065 PO
[2024-11-21] MEDS: LIDOCAINE 1% MDV 20 ML VIAL SC STA (13:25)
[2024-11-21 13:30] VITALS: TEMP 98.2
[2024-11-21 14:44] VITALS: BP 137/63; O2SAT 94
== END ==
LOC: M IRPRO 13:22
PROVIDERS: ATTEND Family Medicine
DX: E04.1 Nontoxic single thyroid nodule (principal)

== ENCOUNTER 2024-11-29 07:58 | Day surgery (SDC) | payer MEDICARE ==
[~2024-11-29] VITALS: Ht 175.3 cm; Wt 75.3 kg
[~2024-11-29 07:58] MED LIST changes: +LIDOCAINE 2% 100 MG/5 ML SDV (FOR ANES.) As Ordered ONE
[2024-11-29 10:06] VITALS: BP 162/74; O2SAT 97
== END 2024-11-29 10:14 | disposition home or self-care (01) ==
LOC: M OPP 07:58
PROVIDERS: ATTEND Surgery
DX: D12.5 Benign neoplasm of sigmoid colon (principal); K57.30 Diverticulosis of large intestine without perforation or abscess without bleeding; R19.5 Other fecal abnormalities; K59.00 Constipation, unspecified; Z79.82 Long term (current) use of aspirin; Z79.899 Other long term (current) drug therapy

== ENCOUNTER → 2024-12-04 | Outpatient (REF) | payer MEDICARE ==
[~2024-12-04] MED LIST changes: -ASPI-655 PO; +ASPI-737 PO; -LIDOCAINE 2% 100 MG/5 ML SDV (FOR ANES.) As Ordered ONE; -VITA100T14 PO; +VITA100T69 PO
[2024-12-04 19:56] LABS: CALCIUM LEVEL 9.4 MG/DL (8.3-10.6); CARBON DIOXIDE LEVEL 29.0 MMOL/L (20-31); CHLORIDE LEVEL 104.0 MMOL/L (98-107); CREATININE FOR GFR 1.56 MG/DL (0.70-1.30); GLOMERULAR FILTRATION RATE 45.2 (>42); POTASSIUM SERUM 4.6 MMOL/L (3.5-5.1); SODIUM LEVEL 143.0 MMOL/L (136-145)
[2024-12-04 19:58] LABS: FREE T4 0.97 NG/DL (0.89-1.76)
== END ==
LOC: M SFHCLERA 11:49
PROVIDERS: ATTEND Family Medicine
DX: E05.90 Thyrotoxicosis, unspecified without thyrotoxic crisis or storm (principal); E87.5 Hyperkalemia

== ENCOUNTER → 2024-12-06 | Outpatient (CLI) | payer MEDICARE | LOC: M RAD 10:21 | PROVIDERS: ATTEND Family Medicine | DX: M25.552 Pain in left hip (principal) ==

== ENCOUNTER 2024-12-31 09:46 | Emergency (ER) | payer MEDICARE ==
[~2024-12-31] VITALS: Ht 175.3 cm; Wt 75.9 kg
[2024-12-31] MEDS: ACETAMINOPHEN 500 MG TAB PO ONE (12:32)
[2024-12-31] MEDS: LIDOCAINE 5% PATCH TD ONE (12:33)
[2024-12-31] MEDS: KETOROLAC 30 MG/ML 1 ML VIAL IM ONE (12:34)
[2024-12-31] MEDS ORDERED: MEDR4PAK PO (13:55)
[2024-12-31] MEDS ORDERED: CYCL-707 PO (13:55)
[2024-12-31 14:00] VITALS: BP 186/87; TEMP 97.4; O2SAT 97
== END 2024-12-31 14:00 | disposition home or self-care (01) ==
LOC: M ED 09:46
DX: S73.102A Unspecified sprain of left hip, initial encounter (principal); E55.9 Vitamin D deficiency, unspecified; K21.9 Gastro-esophageal reflux disease without esophagitis; Z79.82 Long term (current) use of aspirin; Z79.899 Other long term (current) drug therapy
CPT/HCPCS: 73521; 96372; 99283; J1885

== ENCOUNTER → 2025-03-19 | Outpatient (CLI) | payer MEDICARE ==
[~2025-03-19] MED LIST changes: +CYCL-707 PO; -FISH10005 PO; +FISH1CAP38 PO; +MEDR4PAK PO
== END ==
LOC: M RAD 11:59
PROVIDERS: ATTEND Nurse Practitioner Family
DX: E05.20 Thyrotoxicosis with toxic multinodular goiter without thyrotoxic crisis or storm (principal)
CPT/HCPCS: 78012; A9516

== ENCOUNTER 2025-04-07 15:12 | Emergency (ER) | payer MEDICARE ==
[~2025-04-07] VITALS: Ht 175.3 cm; Wt 73.6 kg
[2025-04-07 16:12] LABS: BASO # 0.0 10^3/uL (0.0-0.2); BASO % 0.4 % (0.0-1.0); EOS # 0.1 10^3/uL (0.0-0.5); EOS % 1.4 % (0.0-3.0); LYMPH # 0.5 10^3/uL (1.5-5.0); LYMPH % 6.6 % (24.0-44.0); MONO # 0.8 10^3/uL (0.0-0.8); MONO % 10.2 % (2.0-8.0); NEUTROPHILS # 6.6 10^3/uL (1.5-8.5); NEUTROPHILS % 80.8 % (36.0-66.0); PLATELET COUNT, AUTOMATED 184 10^3/uL (150-450)
[2025-04-07 16:45] LABS: CALCIUM LEVEL 9.0 MG/DL (8.3-10.6); CARBON DIOXIDE LEVEL 30.0 MMOL/L (20-31); CHLORIDE LEVEL 103.0 MMOL/L (98-107); CREATININE FOR GFR 1.4 MG/DL (0.70-1.30); GLOMERULAR FILTRATION RATE 51.1 (>42); POTASSIUM SERUM 4.2 MMOL/L (3.5-5.1); SODIUM LEVEL 141.0 MMOL/L (136-145)
[2025-04-07] MEDS: ACETAMINOPHEN 325 MG TAB PO ONE (18:08)
[2025-04-07 18:56] LABS: ALT/SGPT 25.0 U/L (7.0-40); AST/SGOT 19.0 U/L (<34)
[2025-04-07 19:01] LABS: FREE T4 1.03 NG/DL (0.89-1.76)
[2025-04-07] MEDS: OSELTAMIVIR PHOSPHATE 75 MG CAP PO ONE (19:19)
[2025-04-07] MEDS: IBUPROFEN 600 MG TAB PO ONE (19:51)
[2025-04-07] MEDS: NS (Normal Saline) 0.9% 1,000 ML IV ONE (19:51)
[2025-04-07 23:07] VITALS: O2SAT 96
[2025-04-07] MEDS ORDERED: OSEL75CA PO (23:09)
[2025-04-07 23:20] VITALS: BP 146/72; TEMP 98.9; O2SAT 96
== END 2025-04-07 23:32 | disposition home or self-care (01) ==
LOC: M ED 15:12 → EDBD 15:12 → M ED 23:32
DX: J09.X2 Influenza due to identified novel influenza A virus with other respiratory manifestations (principal); W01.198A Fall on same level from slipping, tripping and stumbling with subsequent striking against other object, initial encounter; I51.7 Cardiomegaly; J90 Pleural effusion, not elsewhere classified; F03.90 Unspecified dementia, unspecified severity, without behavioral disturbance, psychotic disturbance, mood disturbance, and anxiety; I10 Essential (primary) hypertension; E78.5 Hyperlipidemia, unspecified; Z87.891 Personal history of nicotine dependence; Z79.82 Long term (current) use of aspirin; Z79.899 Other long term (current) drug therapy